=== PATIENT | female | born 1965 | race Caucasian/White ===

== ENCOUNTER 2017-12-19 09:30 | Day surgery (SDC) | payer OTHER ==
--- NOTE | 2017-12-08 12:23 | HP ---
PREOPERATIVE HISTORY AND PHYSICAL: DATE OF ADMISSION/SURGERY: 12/19/17 DATE OF OFFICE VISIT: 12/08/17 ATTENDING SURGEON: Dr. Valerie Nino.* (DICTATED BY RUSSEL CANSECO) PROCEDURE: Left shoulder arthroscopic decompression, debridement, and excision of distal clavicle. CHIEF COMPLAINT: Left shoulder pain. HISTORY OF PRESENT ILLNESS: Meka is a 52-year-old female, who presents to the clinic for ongoing left shoulder pain. She has failed conservative measures to include multiple injections and physical therapy. Therefore, has agreed to undergo left shoulder arthroscopic decompression and debridement and excision of distal clavicle with Dr. Nino on 12/19/17. PAST MEDICAL HISTORY: Denies current problems. 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 Denies prior complications with anesthesia. MEDICATIONS: No current medications. ALLERGIES: No known drug allergies. FAMILY HISTORY: Positive for diabetes, heart disease, hypertension, and cancer. SOCIAL HISTORY: She smokes 1 pack per day. She reports occasional alcohol consumption. She denies illegal drug use. REVIEW OF SYSTEMS: A 14-point review of systems was reviewed with the patient. Positive for current complaint, otherwise negative. Denies chest pain or shortness of breath. Denies fevers or chills. Denies history of bleeding disorder. Denies history of DVT or PE. PHYSICAL EXAMINATION GENERAL: A well-developed, well-nourished, 52-year-old female, in no acute distress. Alert and oriented x3. Appropriate mood and affect. VITAL SIGNS: Height 66, weight 191, pulse 76, respiratory rate 16, BMI 30.8. HEENT: Normocephalic, atraumatic. PERRLA. Throat clear. NECK: Supple. PULMONARY: Lungs are clear to auscultation bilaterally. No wheezing, rhonchi, or rales. CARDIO: Regular rate and rhythm. S1, S2. No murmurs, gallops, or rubs. No edema. ABDOMEN: Positive bowel sounds, soft, nontender. MUSCULOSKELETAL: Left upper extremity, skin is intact. No warmth or erythema, well-healed surgical incision, tenderness to palpation over the AC joint and the anterolateral aspect of the shoulder. Forward flexion to 140, passive to 155, abduction to 100, external rotation to 55, internal rotation to T10. +4/5 strength on rotator cuff testing obtained. +4/5 strength on belly press and bear hug. Positive Neer's, Speed's, Moctezuma-Chandler, Gaston's. +2 radial pulses. Sensation intact to light touch distally. NEURO: Alert and oriented x3. Cranial nerves grossly intact. Sensation is intact to light touch distally. DIAGNOSTIC STUDIES: MRI reveals no obvious rotator cuff tear, postoperative changes of the acromion. IMPRESSION: Left shoulder impingement and acromioclavicular joint arthritis. PLAN: The patient is scheduled to undergo a left shoulder arthroscopic decompression and debridement and excision of distal clavicle with Dr. Nino on 12/19/17. She will return to the office 10 to 14 days postop for followup and suture removal. A script for Percocet was sent to her pharmacy for postop pain management and a script for Keflex for antibiotic prophylaxis. RUSSEL CANSECO [id number]/[facility] #: [id number] MARIANO
[~2017-12-19 09:30] MED LIST: Buffered Lidocaine 0.9% SYRIN* 5 ML/SYR SYRINGE INTRADERM ONE; Dexamethasone IV* 4 MG/ML 1 ML (4 MG) IV SLOW PU ONE; Famotidine IV* 10 MG/ML 2 ML (20 mg) IV ONE
[2017-12-19] MEDS ORDERED: Dexamethasone IV* 4 MG/ML 1 ML (4 MG) ONE (09:38)
[2017-12-19] MEDS ORDERED: Famotidine IV* 10 MG/ML 2 ML (20 mg) ONE (09:38)
[2017-12-19] MEDS ORDERED: ceFAZolin 2 GM PREMIX (*) 2 GM/50 ML BAG IVPB ONE (09:38)
[2017-12-19] MEDS ORDERED: methylPREDNISolone ACETATE 80* 80 MG/ML 1 ML VIAL ONE (10:18)
[2017-12-19] MEDS ORDERED: Bupivacaine 0.25% SDV* 30 ML ONE ×2 (10:19→12:22)
[2017-12-19] MEDS ORDERED: Midazolam* 1 MG/ML 2 ML VIAL (2 MG) ONE (11:06)
[2017-12-19] MEDS ORDERED: Ketorolac INJ* 30 MG/ML 1 ML VIAL ONE ×2 (11:06→11:34)
[2017-12-19] MEDS ORDERED: Propofol* 10 MG/ML 20 ML BTL IV PUSH ONE (11:06)
[2017-12-19] MEDS ORDERED: fentaNYL* 50 MCG/ML 2 ML VIAL (100 MCG VIAL) ONE ×3 (11:06→11:56)
[2017-12-19] MEDS ORDERED: Lidocaine 2% PF * 5 ML VIAL ONE (11:06)
[2017-12-19] MEDS ORDERED: KETAMINE HCL* 50 MG/ML 10 ML VIAL ONE (11:38)
[2017-12-19] MEDS ORDERED: fentaNYL* 50 MCG/ML 2 ML VIAL (100 MCG VIAL) IV PRN (11:51)
[2017-12-19] MEDS ORDERED: Naloxone* 0.4 MG/ML 1 ML VIAL IV PRN (11:51)
[2017-12-19] MEDS ORDERED: HYDROcodone/ACETAMIN 5-325 MG* 1 TAB PO PRN (11:51)
[2017-12-19] MEDS ORDERED: oxyCODONE TAB* 5 MG TAB PO PRN (11:51)
[2017-12-19] MEDS ORDERED: PROCHLORPERAZINE INJ 5 MG/ML 2 ML VIAL IV PRN (11:51)
[2017-12-19] MEDS ORDERED: Ondansetron INJ* 2 MG/ML VIAL ONE (12:13)
[2017-12-19 13:39] VITALS: BP 136/86
--- NOTE | 2017-12-20 04:17 | OP ---
CC: PCP, Valerie Mojica NP * DATE OF OPERATION: 12/19/17 - [facility] DATE OF : 65 SURGEON: Valerie Nino MD RESPIRATORY TECH: RUSSEL Harding ANESTHESIOLOGIST: Dr. Woody. ANESTHESIA: General. PRE-OP DIAGNOSES: Left shoulder AC joint pain with impingement, possible rotator cuff tear and SLAP tear. POST-OP DIAGNOSES: SLAP type 2 tear, partial thickness tear of the rotator cuff impingement and retained foreign body. OPERATIVE PROCEDURE: 1. Left shoulder arthroscopy with extensive glenohumeral debridement including biceps tenotomy. 2. Revision subacromial decompression with acromioplasty. 3. Removal of foreign body at the previous distal clavicle incision. 4. Subacromial injection of 80 mg of Depo-Medrol. INDICATIONS: Meka Hilton is a 52-year-old female who has a work-related injury from 2010. She has undergone multiple surgeries by different doctors. She has had surgery by Dr. Leahy as well as Dr. Singh. She has had a distal clavicle excision. She has done physical therapy, failed conservative management. She elected to proceed with revision decompression and debridement with possible revision distal clavicle excision, possible biceps tenotomy. Risks and benefits of surgery were discussed at length including bleeding, infection, damage to nerves, vessels, surrounding structures, wound nonhealing, persistent pain, need for further surgery, scarring, stiffness, incomplete relief of symptoms, risks of anesthesia including incomplete relief of symptoms and risk of DVT. DESCRIPTION OF PROCEDURE: The patient was greeted in the preoperative area by the attending surgeon. Correct extremity was marked and consent was confirmed. The patient was brought back to the operating suite, where she was placed in supine position on the operating table. She then underwent general anesthesia with endotracheal intubation after which she was placed in the right lateral decubitus position. All bony prominences were padded. She was secured with a peg board and axillary role was placed. A 10-pounds of traction were used for traction. The left shoulder was prepped and draped in usual sterile fashion beginning with chlorhexidine soap, scrub, and alcohol wipe and a final prep with ChloraPrep. After appropriate surgical pause indicating site, side, procedure and administration of antibiotics, the standard postero-lateral portal was made sharply with 11-blade. The scope was introduced into the joint. The joint was examined. The glenohumeral joint had mild wear and tear at the insertion of the rotator cuff. There was some evidence of grade 1 changes with no unstable flaps of the chondral surface. Glenoid had grade 0 changes. Anterior and posterior labrum had mild unstable fraying. There was a type 2 SLAP tear with positive peel back sign. There was inflammation and irritation of the biceps tendon and the anterior portal was made in outside-in fashion. The previous interval had abundant scar tissue. The biceps was intact and then tenotomized. The undersurface of the supraspinatus tendon had some partial thickness tearing and it was marked for identification on the subacromial surface. The inferior recess was intact. There were no loose bodies. There was abundant erythema present. After the debridement, biceps tenotomy was completed. Attention was directed to the subacromial space. The lateral portal was made in outside-in fashion. Shaver was used to debride back the bursa. There was abundant bursa posteriorly especially. The rotator cuff was pristine on the subacromial side. There was evidence of previous acromioplasty with a small ridge that was present near the AC joint. The osteophyte was then removed using arthroscopic bur after it was skeletonized. The AC joint was examined. There was abundant thick scar tissue, this was carefully debrided back using a shaver as well as electrocautery device, which revealed a previous Ethibond suture. This was right in the middle of the AC joint. This was then carefully removed. No further sutures were identified, but care was taken not to disrupt the superior capsule of the AC joint. The medial border of the portion of the clavicle was then skeletonized. There was more than 1-cm of it previously removed; therefore, no further bone was taken. Any excess scar tissue was carefully released. The clavicle was taken through a range of motion. Once the debridement was complete, the rotator cuff was examined again and found to be completely intact. The marking sutures were removed. Final images were obtained. All fluid and debris was removed. An 18- gauge spinal needle was placed intra-articularly and the 20 cc of 0.25% Marcaine were injected into the intra-articular joint. The remaining 30 cc were placed in the portals in the subacromial space with 80 mg of Depo-Medrol in subacromial space. Sterile dresses were applied. She was awoken from anesthesia and she was transferred to the PACU in stable condition. POSTOPERATIVE PLAN: She will be nonweightbearing. She will be allowed range of motion as tolerated. She will be discharged on pain medications as well as antibiotics as well as a small prescription of Toradol. DVT prophylaxis was considered, but deferred due to no previous personal or family history. I will see the patient back in 10 to 14 days. [id number]/[facility] #: [id number] MARIANO
== END 2017-12-19 13:54 | disposition home or self-care (01) ==
LOC: OREAST 09:30
PROVIDERS: ATTEND Orthopaedic Surgery
DX: S43.492A Other sprain of left shoulder joint, initial encounter (principal); S46.012A Strain of muscle(s) and tendon(s) of the rotator cuff of left shoulder, initial encounter; X58.XXXA Exposure to other specified factors, initial encounter; Y92.9 Unspecified place or not applicable; Y99.0 Civilian activity done for income or pay; M75.42 Impingement syndrome of left shoulder; M25.512 Pain in left shoulder; M19.212 Secondary osteoarthritis, left shoulder; M19.112 Post-traumatic osteoarthritis, left shoulder; F17.210 Nicotine dependence, cigarettes, uncomplicated
CPT/HCPCS: J0690; J1040; J1100; J1885; J2250; J2405; J2704; J3010